=== PATIENT | female | born 1975 | race African-American/Black ===

== ENCOUNTER → 2016-09-05 | Day surgery (SDC) | payer BC ==
[~2016-09-05] MED LIST: HYDROmorphone 2 MG/ML VIAL IV PRN; IV RINGERS,LACTATED 1000ML 1,000 ML IV SCH; L-NO1TBD7; LIDOCAINE 1% 1 ML SYRINGE. ID PRN; LIDOCAINE 2% PF Vial for OR 5 ML VIAL. ONE; MORPHINE SULFATE 2 MG/ML DISP.SYRIN. IV PRN; ONDANSETRON PF 4 MG/2 ML VIAL. IV PRN; PROCHLORPERAZINE 10 MG/2 ML VIAL. IV PRN; PROPOFOL 20 ML IV ONE; fentaNYL PF VIAL 100 MCG/2 ML VIAL IV PRN
[2016-09-05 07:37] LABS: NEG OBC UR NEG; POS OBC UR POS
[2016-09-05 08:38] VITALS: BP 141/89
[2016-09-05 09:09] LABS: CALCIUM 9.2 mg/dL (8.5-10.1); GFR 74.7
--- NOTE | 2016-09-07 11:13 | PATHOLOGY ---
PATHOLOGY REPORT * * * * * * * * FINAL DIAGNOSIS: Esophagus, distal, biopsy: - Fragments of unremarkable squamous epithelium. - No definite columnar epithelium present. - No evidence of atypia or malignancy. (BARON:; d/t: 09/07/16) REPORT ELECTRONICALLY SIGNED BY: Sheila Matta M.D. DATE/TIME: 09/07/2016 11:11 * * * * * * * * GROSS PATHOLOGY: Received in formalin labeled "Lubna Camacho, distal esophagus BX," are 3 segments of white soft tissue measuring 1.4 x 0.2 x 0.1 cm in aggregate dimensions and ranging from 0.4 to 0.5 cm in maximum dimension. The specimen is submitted entirely in cassette A1. (VICKI; 09/06/2016) INITIAL CPT CODE(S): A; 31451 Professional services performed [place] [facility] [place] [address] Technical services performed by [facility] at [address] [place] [address], [facility] [address] [address]. SPECIMEN(S) RECEIVED: A.Distal esophagus biopsy CLINICAL HISTORY: GERD PATIENT: LUBNA CAMACHO /AGE: 811/30/1975 (Age: 40) PATIENT #: [id number] ALT CASE #: SPECIMEN COLLECTION DATE: 09/05/2016 SPECIMEN RECEIVED DATE: 09/05/2016 [facility] - [address] [place] [address] - PHONE: [phone] * * * END OF REPORT * * *
== END | disposition home or self-care (01) ==
LOC: ENDOS 06:57
PROVIDERS: ATTEND Internal Medicine Gastroenterology
DX: T18.2XXA Foreign body in stomach, initial encounter (principal); K21.0 Gastro-esophageal reflux disease with esophagitis; D64.9 Anemia, unspecified; Z83.3 Family history of diabetes mellitus; Z82.49 Family history of ischemic heart disease and other diseases of the circulatory system; Z72.89 Other problems related to lifestyle; Z90.49 Acquired absence of other specified parts of digestive tract
CPT/HCPCS: 36415; 43239; 80048; 81025; 83036; 88305; J2704